=== PATIENT | male | born 1970 | race Caucasian/White ===

== ENCOUNTER 2017-01-21 10:07 | Day surgery (SDC) | payer OTHER ==
[2017-01-21] VITALS (9 sets, daily range): BP systolic 125–155; BP diastolic 82–94; PULSE 86–98; RESP 13–23; O2SAT 94–97
[~2017-01-21] VITALS: Ht 172.7 cm; Wt 82.1 kg
--- NOTE | 2017-01-21 06:44 | PCM.HPANE ---
Patient Data Surgeon Admitting Provider: Attending Provider:Mike Reeder MD Primary Care Physician:Isaiah Other Provider:Chetan Alvarez Anesthesia Reason for Visit Left Small Proximal Interphalangeal Joint Fracture Ht/WT & BMI Height (Feet): 5 Height (Inches): 8 Weight (Kilograms): 82.10 Body Mass Index 27.00 Allergies Coded Allergies: hydrocodone (Verified Allergy, Unknown, UNKNOWN, 01/15/17) Past Anesthesia History Anesthesia History: Denies:: Fam Anesthesia Reaction, Fam Malignant Hypertherm Diabetes History Hx Diabetes?: No MRSA MRSA: No Medications Reported Medications oxyCODONE-Acetaminophen 5-325 mg 1 Each Tablet1 Tab PO Q6H PRN For Pain Ref 0 01/15/17 Cyclobenzaprine 5 Mg Tablet5 Mg PO TID PRN Spasm 01/15/17 History History of ENT Problems?: No Hx of Heart Problems?: No Cardiovascular History: Denies:: Heart Murmur Hypertension Hx of Respiratory Problem?: No Respiratory History: Denies:: Use of C-PAP Machine Hx Neurologic Problems?: No Hx of GI Problems?: No Hx of Problems?: No Male Hx: Denies:: Prostate Problems Scrotal Mass Testicular Surgery Skin History: Denies:: History Skin Disorders? Pressure Ulcers Musculoskeletal History: Positive for:: Back Injury (C/OF NECK PAIN) Musculoskeletal Trauma (C/OF LT HIP PAIN LT SMALL FINGER FX=CURRENT PROBLEM) Hx of Psycho/Social Problems?: No Hx Surgeries?: No Hx Any Other Health Problems?: No Other History: Denies:: Cancer Endocrine Disease Hospitalization Thyroid Disease History Blood Transfusions: Denies:: Blood Transfusions Hx Diabetes: No Stop/Bang S-Snoring: Do You Snore Loudly: No T-Tired: feel tired, fatigued: No O-Obsered: Observed not breath: Yes P-Blood Pressure: treated: No B- Body Mass Index > 35 kg/m2: No A- Age over 50: No N- Neck Large Circumference: No G- Gender Male: Yes JAMSHID Total Score: 2 Risk Assessment Category Category 1A: Patient has history of documented sleep apnea, and HAS NOT received any narcotic, sedative or anesthesia administration during this stay. Category 1B: Patient has history of documented sleep apnea, and HAS received any narcotic , sedative or anesthesia administration during this stay Category 2: Patient has SUSPECTED Obstructive Sleep Apnea, and HAS received any narcotic , sedative or anesthesia administration during this stay. Category 3: Patient has SUSPECTED Obstructive Sleep Apnea and HAS NOT received narcotic, sedative or anesthesia administration during this stay. Category 4: Outpatient in Procedural Areas with known sleep apnea or who screen positive for High Risk via the STOP/BANG questionnaire. Exam Exam General Appearance: Alert, Oriented X3, Cooperative HEENT/AIRWAY: MP 2, Neck Movement (Thick, from), Mouth Opening (good) Lungs: Clear to Auscultation Heart: Exam Unremarkable Plan Impression Patient chart reviewed, patient interviewed and anesthestic plan with risks, benefits, and alternatives discussed, and informed consent obtained. ASA Physical Status: ASA2 Mod Systemic Disease Anesthetic Plan: GA Bene/Risks/Altern/Consents: Yes HP Complete Prior to Induction: Yes Praveen Adrian MD Jan 21, 2017 06:44
[~2017-01-21 10:07] MED LIST: CYCL5TAB PO; Clindamycin 900 mg/50 mL D5W IV SCH; Lactated Ringer's 1,000 ML IV SCH; OXYC1TAB24 PO
[2017-01-21] MEDS ORDERED: Ondansetron 2 mg/mL 2 mL Inj ONE (10:08)
[2017-01-21] MEDS ORDERED: fentaNYL-PF 50 mCg/mL 2 mL Inj ONE (10:08)
[2017-01-21] MEDS ORDERED: Propofol 10,000 mCg/mL 20 mL Inj ONE (10:08)
[2017-01-21] MEDS ORDERED: Lactated Ringer's 1,000 ML IV ONE (10:52)
[2017-01-21] MEDS ORDERED: Lactated Ringer's 1,000 ML IV SCH (12:12)
[2017-01-21] MEDS ORDERED: Lactated Ringer's 500 ML IV PRN (12:12)
[2017-01-21] MEDS ORDERED: Ondansetron 2 mg/mL 2 mL Inj IVPUSH PRN (12:15)
[2017-01-21] MEDS ORDERED: fentaNYL-PF 50 mCg/mL 2 mL Inj IVPUSH PRN (12:15)
[2017-01-21] MEDS ORDERED: hydrALAZINE 20 mg/mL Inj IVPUSH PRN (12:15)
[2017-01-21] MEDS ORDERED: Labetalol 5 mg/mL 4 mL Inj IV PRN (12:15)
[2017-01-21] MEDS ORDERED: Phenylephrine 10,000 mCg/mL Inj IVPUSH PRN (12:15)
[2017-01-21] MEDS ORDERED: EPHEDrine Sulfate 50 mg/mL Inj IVPUSH PRN (12:15)
[2017-01-21] MEDS ORDERED: Dexamethasone 4 mg/mL Inj IVPUSH PRN (12:15)
[2017-01-21] MEDS ORDERED: Atropine 0.4 mg/mL Inj IVPUSH PRN (12:15)
[2017-01-21] MEDS ORDERED: HYDR25TA4 PO (12:23)
[2017-01-21] MEDS ORDERED: Bupivacaine-MPF 0.25% 30 mL Inj INFILTRATE ONE (12:28)
[2017-01-21] MEDS ORDERED: oxyCODONE-Acetamin 5-325 mg Tablet PO PRN (13:40)
[2017-01-21] MEDS: HYDROmorphone 1 mg/mL Inj IVPUSH PRN ×2 (13:42→13:49)
--- NOTE | 2017-01-21 14:17 | PCM.ANEP1 ---
Post Anesthesia Phase 1 PACU Phase 1 Assessment Vital Signs Vital Signs Date Time Temp Pulse Resp B/P Pulse Ox O2 Delivery O2 Flow Rate FiO2 01/21/17 14:06 36.5 93 21 135/92 96 Room Air 01/21/17 14:00 36.5 90 19 142/93 95 Room Air 01/21/17 13:45 94 18 149/87 94 Room Air 01/21/17 13:40 97 15 130/94 95 Room Air 01/21/17 13:35 98 23 125/82 96 Room Air 01/21/17 13:33 36.8 138/93 01/21/17 10:43 36.8 86 14 155/92 97 Room Air Anesthetic Administered: GA Level of Alertness: Awake, talking COLLADO's with Equal Strength: Yes Pain: No Nausea or Vomiting: No Oxygen Delivery: Room Air Lungs: Normal Air Movement Praveen Adrian MD Jan 21, 2017 14:17
--- NOTE | 2017-01-22 07:20 | PCM.ANEP2 ---
Post Anesthesia Evaluation ASA/CMS Post Anesthesia VS in Patient's Normal Range?: Yes Resp Stable; Airway Patent?: Yes CV Function & Hydration Stable: Yes Mental Status Recovered?: Yes Pain control Satisfactory?: Yes N/V Control Satisfactory?: Yes Praveen Adrian MD Jan 22, 2017 07:20
--- NOTE | 2017-01-23 00:30 | OP ---
[address] [address] OPERATIVE REPORT PATIENT: LEVI COLUNGA : 1970 MR#: [id number] ADMIT: 01/21/2017 JOB ID: [id number] DATE OF SURGERY: PREOPERATIVE DIAGNOSIS(ES): Left small finger middle phalangeal base fracture, comminuted, intra-articular, and displaced. POSTOPERATIVE DIAGNOSIS(ES): Left small finger middle phalangeal base fracture, comminuted, intra-articular, and displaced. PROCEDURE: 1. Closed reduction of left small finger middle phalangeal base fracture. 2. Application of left small finger external fixation device. SURGEON: Mike Reeder MD. SENIOR PROJECT LEADER/TEAM LEAD: None. ANESTHESIA: General anesthesia. ESTIMATED BLOOD LOSS: Minimal. COMPLICATIONS: None apparent. IMPLANT: Biomet Biosymmetric external fixation device. COMPLICATIONS: None apparent. INDICATIONS FOR PROCEDURE: This is a 46-year-old male patient who sustained a severely comminuted fracture of the left small finger middle phalangeal base with impaction and displacement. At this point, a closed reduction of the fracture is indicated. I elected to place a dynamic proximal interphalangeal joint external fixation device to allow for recovery while preventing joint contracture. PROCEDURE AND FINDINGS: The patient was identified in the preoperative area and surgical site was marked. The patient was then taken back to the operating room and placed supine on the operating table. Appropriate time-outs were taken. General anesthesia was induced smoothly. The patient was then prepped and draped in the usual sterile manner. Local anesthesia was then infiltrated to the left small finger in a digital block and dorsal ring block. This consists of 0.25% Marcaine. The fracture was then viewed and again showed a comminuted fracture of the middle phalangeal base with multiple fragments. The distal fragment has impacted into the base. At this point, a true lateral view of the finger was obtained. I was able to have the nurse hold the finger in such a position to hold this view steady under the fluoroscopy. A Biomet Symmetric external fixation kit was then obtained. It was then aligned directly over the point of rotation of the proximal phalangeal head. This was confirmed with the guide on the fixation device under fluoroscopy. A 0.045 inch K-wire was then driven through the device and across the point of rotation for the joint holding the fixation device in place. Once this has been done, the device was then aligned with the distal fragment. Again, a second 0.045 inch K-wire was driven through the middle phalangeal head, again with the external fixator aligned in such a way that the pin is optimally aligned. Once this has been done, the pins were locked. The device was then distracted for approximately half a centimeter to allow the distal fragment to be relocated to its original position. This area was then checked with fluoroscopy. The alignment is much improved. There continues to be a small proximal piece that is slightly displaced. I tried to relocate this piece with close manipulation as well as pinching of the piece with a towel clip; however, I was not able to get this to stay reduced. The joint surface appeared to be fairly . At this point, a second 0.045 inch K-wire was then placed into the middle phalanx just proximal to the second pin. Once this had been done, I was satisfied with the alignment and with the distraction. The pins were clipped and pin caps were placed. The pin sites were then dressed with Xeroform. The patient tolerated the procedure well. Needle count, sponge count, instrument counts were correct at the end of procedure. The patient was extubated and transported to recovery in a stable condition.
[2017-02-04] MEDS ORDERED: CYCL10TA9 PO (09:31)
[2017-02-04] MEDS ORDERED: HYDR25TA4 PO (09:32)
[2017-02-04] MEDS ORDERED: OXYC1TAB24 PO (09:32)
[2017-03-17] MEDS ORDERED: OXYC-466 PO (14:31)
[2017-03-17] MEDS ORDERED: CYCL5TAB PO (14:31)
== END 2017-01-21 23:59 | disposition home or self-care (01) ==
LOC: SAS 10:07
PROVIDERS: ATTEND Plastic Surgery
DX: S62.625A Displaced fracture of middle phalanx of left ring finger, initial encounter for closed fracture (principal); X58.XXXA Exposure to other specified factors, initial encounter; Y92.9 Unspecified place or not applicable; Z79.899 Other long term (current) drug therapy
CPT/HCPCS: 26740; J1170; J7120

== ENCOUNTER 2017-02-05 08:56 | Day surgery (SDC) | payer OTHER ==
[~2017-02-05] VITALS: Ht 172.7 cm; Wt 80.3 kg
--- NOTE | 2017-02-05 06:40 | PCM.HPANE ---
Patient Data Surgeon Admitting Provider: Attending Provider:Mike Reeder MD Primary Care Physician:Isaiah Other Provider:Chetan Alvarez Anesthesia Reason for Visit Left Small Finger Fracture Ht/WT & BMI Height (Feet): 5 Height (Inches): 8 Weight (Kilograms): 80.28 Body Mass Index 26.00, 26.00 Allergies Coded Allergies: hydrocodone (Verified Allergy, Unknown, UNKNOWN, 01/15/17) Past Anesthesia History Anesthesia History: Denies:: Fam Anesthesia Reaction, Fam Malignant Hypertherm Diabetes History Hx Diabetes?: No MRSA MRSA: No Medications Reported Medications Hydrochlorothiazide 25 Mg [id number] Mg PO DAILY 30 Days Ref 0 02/04/17 Discontinued Reported Medications oxyCODONE-Acetaminophen 5-325 mg 1 Each Tablet1 Tab PO Q6H PRN For Pain Ref 0 02/04/17 Cyclobenzaprine 10 Mg [id number] Mg PO TID PRN Spasm 02/04/17 Hydrochlorothiazide 25 Mg [id number] Mg PO DAILY 30 Days Ref 0 01/21/17 oxyCODONE-Acetaminophen 5-325 mg 1 Each Tablet1 Tab PO Q6H PRN For Pain Ref 0 01/15/17 History History of ENT Problems?: No HEENT History: Positive for:: Abnormal Airway Denies:: Cataracts Difficult Intubation Dysphagia Glaucoma Hearing Problem Sinus Problem TMJ Denture Type: None Teeth Condition: Within Normal Limits Hx of Heart Problems?: No Cardiovascular History: Denies:: Heart Murmur Hypertension Hx of Respiratory Problem?: No Respiratory History: Denies:: Use of C-PAP Machine Hx Neurologic Problems?: No Hx of GI Problems?: No Hx of Problems?: No Male Hx: Denies:: Prostate Problems Scrotal Mass Testicular Surgery Skin History: Denies:: History Skin Disorders? Pressure Ulcers Hx Musculoskeletal Problems?: Yes Musculoskeletal History: Positive for:: Back Injury (hx of neck pain) Musculoskeletal Trauma (left small finger dislocation current problem, orig surgery 11/2016) Hx of Psycho/Social Problems?: No Hx Surgeries?: Yes (left small finger ORIF- ext fixation) Hx Any Other Health Problems?: Yes Other History: Denies:: Cancer Endocrine Disease Hospitalization Thyroid Disease History Blood Transfusions: Denies:: Blood Transfusions Hx Diabetes: No Smoking Status: Smoker Current Status UNK Stop/Bang S-Snoring: Do You Snore Loudly: No T-Tired: feel tired, fatigued: No O-Obsered: Observed not breath: Yes P-Blood Pressure: treated: No B- Body Mass Index > 35 kg/m2: No A- Age over 50: No N- Neck Large Circumference: No G- Gender Male: Yes JAMSHID Total Score: 2 JAMSHID Risk Assessment: Low Risk, <3 Yes Risk Assessment Category Category 1A: Patient has history of documented sleep apnea, and HAS NOT received any narcotic, sedative or anesthesia administration during this stay. Category 1B: Patient has history of documented sleep apnea, and HAS received any narcotic , sedative or anesthesia administration during this stay Category 2: Patient has SUSPECTED Obstructive Sleep Apnea, and HAS received any narcotic , sedative or anesthesia administration during this stay. Category 3: Patient has SUSPECTED Obstructive Sleep Apnea and HAS NOT received narcotic, sedative or anesthesia administration during this stay. Category 4: Outpatient in Procedural Areas with known sleep apnea or who screen positive for High Risk via the STOP/BANG questionnaire. Exam Exam General Appearance: Alert, Oriented X3, Cooperative, No Acute Distress HEENT/AIRWAY: MP 2 Lungs: Clear to Auscultation, Normal Air Movement Heart: Exam Unremarkable, Regular Rate/Rhythm, No Murmurs/Rubs/Gallops Plan Impression Patient chart reviewed, patient interviewed and anesthestic plan with risks, benefits, and alternatives discussed, and informed consent obtained. NPO per Anesth. Guidelines: Yes ASA Physical Status: ASA2 Mod Systemic Disease Anesthetic Plan: MAC Bene/Risks/Altern/Consents: Yes HP Complete Prior to Induction: Yes Alexi Aguilar MD Feb 05, 2017 06:40
[~2017-02-05 08:56] MED LIST changes: -CYCL5TAB PO; -Clindamycin 900 mg/50 mL D5W IV SCH; +Clindamycin Inj 900 MG in IV Premix 1 EACH IV ONE; +HYDR25TA4 PO; -Lactated Ringer's 1,000 ML IV SCH; -OXYC1TAB24 PO
[2017-02-05] MEDS ORDERED: fentaNYL-PF 50 mCg/mL 2 mL Inj ONE (08:57)
[2017-02-05] MEDS ORDERED: Propofol 10,000 mCg/mL 20 mL Inj ONE (08:57)
[2017-02-05] MEDS ORDERED: Lactated Ringer's 1,000 ML IV ONE (09:30)
[2017-02-05 09:41] VITALS: BP 144/86; PULSE 82; RESP 14; O2SAT 99
[2017-02-05] MEDS ORDERED: Lactated Ringer's 500 ML IV PRN (11:14)
[2017-02-05] MEDS ORDERED: Lactated Ringer's 1,000 ML IV SCH (11:14)
[2017-02-05] MEDS ORDERED: MetoCLOpramide 5 mg/mL 2 mL Inj IVPUSH PRN (11:15)
[2017-02-05] MEDS ORDERED: EPHEDrine Sulfate 50 mg/mL Inj IVPUSH PRN (11:15)
[2017-02-05] MEDS ORDERED: Ondansetron 2 mg/mL 2 mL Inj IVPUSH PRN (11:15)
[2017-02-05] MEDS ORDERED: Dexamethasone 4 mg/mL Inj IVPUSH PRN (11:15)
[2017-02-05] MEDS ORDERED: Phenylephrine 10,000 mCg/mL Inj IVPUSH PRN (11:15)
[2017-02-05] MEDS ORDERED: HYDROmorphone 1 mg/mL Inj IVPUSH PRN (11:15)
[2017-02-05] MEDS ORDERED: Lidocaine 1% 50 mL Inj NERVEBLOCK ONE (11:37)
[2017-02-05] MEDS ORDERED: Bupivacaine-MPF 0.25% 30 mL Inj NERVEBLOCK ONE (11:37)
[2017-02-05] MEDS ORDERED: oxyCODONE-Acetamin 10-325 mg Tablet PO PRN (12:05)
[2017-02-05] MEDS: fentaNYL-PF 50 mCg/mL 2 mL Inj IVPUSH PRN ×3 (12:09→12:38)
[2017-02-05 12:11] VITALS: BP 138/95; PULSE 87; RESP 16; O2SAT 99
[2017-02-05 12:19] VITALS: BP 151/93; PULSE 90; RESP 16; O2SAT 94
--- NOTE | 2017-02-05 12:27 | PCM.ANEP1 ---
Post Anesthesia Phase 1 PACU Phase 1 Assessment Vital Signs Vital Signs Date Time Temp Pulse Resp B/P Pulse Ox O2 Delivery O2 Flow Rate FiO2 02/05/17 12:19 90 16 151/93 94 Room Air 02/05/17 12:11 36.1 87 16 138/95 99 Room Air 02/05/17 09:41 36.7 82 14 144/86 99 Room Air Anesthetic Administered: MAC Level of Alertness: Awake, talking COLLADO's with Equal Strength: Yes Pain: Yes Pain Scale Score: 5 Nausea or Vomiting: No Cardiovascular Function and Hy: Yes Oxygen Delivery: Room Air Lungs: Clear to Auscultation, Normal Air Movement Alexi Aguilar MD Feb 05, 2017 12:27
[2017-02-05 12:40] VITALS: BP 149/89; PULSE 74; RESP 16; O2SAT 94
--- NOTE | 2017-02-10 09:30 | OP ---
[address] [address] OPERATIVE REPORT PATIENT: LEVI COLUNGA : 1970 MR#: [id number] ADMIT: 02/05/2017 JOB ID: [id number] DATE OF SURGERY: 02/05/2017 PREOPERATIVE DIAGNOSIS(ES): 1. Left small finger proximal interphalangeal joint fracture dislocation, status post closed reduction and external fixation. 2. Relapse of the left small finger fracture with external fixator malfunction. POSTOPERATIVE DIAGNOSIS(ES): 1. Left small finger proximal interphalangeal joint fracture dislocation, status post closed reduction and external fixation. 2. Relapse of the left small finger fracture with external fixator malfunction. PROCEDURE: 1. Closed reduction of left finger proximal interphalangeal joint fracture dislocation. 2. Adjustment and re-application of left small finger external fixator. SURGEON: Mike Reeder MD STUDENT ACCOUNTS MANAGER: None. ANESTHESIA: MAC with local. COMPLICATIONS: None apparent. SPECIMEN: None. INDICATIONS FOR PROCEDURE: This is a 46-year-old, male patient, with a left small finger proximal interphalangeal joint fracture dislocation with comminuted fracture of the base of the middle phalanx. The patient was taken back to the operating room on January 21, 2017, and closed reduction and external fixator placement was completed. According to the patient that one of the proximal pins slipped out of the external fixator on postop day one. Although I saw the patient on that day, did not notice any difference. However, I saw the patient two weeks postoperative and the proximal pin on the radial side had disengaged from the external fixator, causing an ulnar deviation at the fracture site. At that point, I elected to schedule the patient for operating room to replace the external fixator and to re-distract the finger. DESCRIPTION OF PROCEDURE: The patient was identified in the preoperative area and surgical site was marked. It was noted that the proximal pin had disengaged from the ulnar site of the external fixator as well on examination today. The patient was then taken back to the operating room and placed supine on the operating table. Appropriate time-outs were taken. MAC was induced smoothly. The patient was then prepped and draped in the usual sterile manner. Local anesthesia was then infiltrated in a digital block fashion. A dorsal ring block was also carried out. I also infiltrated some local anesthesia into the flexor sheath and around the fracture itself. Once this has been done, the external fixator was examined. Both pins were out proximally. The distal pins appeared to be secure. I did distraction on the external fixator on both the radial and ulnar side to the shortest possible distance. I was able to then re-engage the pins on the ulnar and radial side. Once this had been done, I pinched external fixator to reduce the width. This allowed me to bend the ends of the pins to prevent further slippage. The radial aspect of the pin was able to be bent about 90 degrees. Ulnarly, the pin was a little bit shorter and I could only bend it to approximately 45 degrees or so. Once this has been done, I re-distracted the external fixator out to length. The fracture was checked with portable fluoroscopy. The patient had only adequate reduction. Not as good as two weeks ago. The pin also showed some stress bending. At this point, I decided that I cannot distract this any further, as any further distraction will likely cause the pin to slip out ulnarly. The external fixator was then dressed with antibiotic ointment and Xeroform at the pin sites. The patient was then placed into an ulnar gutter splint in an intrinsic plus position. The patient tolerated the procedure well. Needle count, sponge count, instrument counts were correct at the end of the procedure. The patient was transported to recovery in stable condition. The plan is to keep the patient splinted for approximately four weeks. I will probably remove the external fixator at six weeks to eight weeks, and start the patient on aggressive range of motion.
[2017-03-17] MEDS ORDERED: OXYC-466 PO (14:31)
[2017-03-17] MEDS ORDERED: CYCL5TAB PO (14:31)
== END 2017-02-05 23:59 | disposition home or self-care (01) ==
LOC: SAS 08:56
PROVIDERS: ATTEND Plastic Surgery
DX: S62.625A Displaced fracture of middle phalanx of left ring finger, initial encounter for closed fracture (principal); Y93.9 Activity, unspecified; Y92.9 Unspecified place or not applicable
CPT/HCPCS: 20693; 26740; J2250; J3010; J7120

== ENCOUNTER 2017-03-18 12:56 | Day surgery (SDC) | payer OTHER ==
[~2017-03-18] VITALS: Ht 172.7 cm; Wt 85.0 kg
[~2017-03-18 12:56] MED LIST changes: +CYCL5TAB PO; +CeFAZolin Inj 2 GM in IV Premix 1 EACH IV SCH; -Clindamycin Inj 900 MG in IV Premix 1 EACH IV ONE; -HYDR25TA4 PO; +Lactated Ringer's 1,000 ML IV SCH; +OXYC-466 PO
[2017-03-18] MEDS ORDERED: Propofol 10,000 mCg/mL 20 mL Inj ONE (12:57)
[2017-03-18] MEDS ORDERED: Lactated Ringer's 500 ML IV PRN (13:31)
[2017-03-18] MEDS ORDERED: Lactated Ringer's 1,000 ML IV SCH (13:31)
[2017-03-18] MEDS ORDERED: Dexamethasone 4 mg/mL Inj IVPUSH PRN (13:35)
[2017-03-18] MEDS ORDERED: Ondansetron 2 mg/mL 2 mL Inj IVPUSH PRN (13:35)
[2017-03-18] MEDS ORDERED: MetoCLOpramide 5 mg/mL 2 mL Inj IVPUSH PRN (13:35)
[2017-03-18] MEDS ORDERED: HYDROmorphone 1 mg/mL Inj IVPUSH PRN (13:35)
[2017-03-18] MEDS ORDERED: Phenylephrine 10,000 mCg/mL Inj IVPUSH PRN (13:35)
[2017-03-18] MEDS ORDERED: EPHEDrine Sulfate 50 mg/mL Inj IVPUSH PRN (13:35)
[2017-03-18] MEDS ORDERED: fentaNYL-PF 50 mCg/mL 2 mL Inj IVPUSH PRN (13:35)
[2017-03-18 13:45] VITALS: BP 143/95; PULSE 100; RESP 16; O2SAT 96
[2017-03-18] MEDS ORDERED: Lactated Ringer's 1,000 ML IV ONE (13:45)
--- NOTE | 2017-03-18 14:25 | PCM.HPANE ---
Patient Data Surgeon Admitting Provider: Attending Provider:Mike Reeder MD Primary Care Physician:Isaiah Other Provider:Chetan Alvarez Anesthesia Reason for Visit Fracture Of Left Small Finger Ht/WT & BMI Height (Feet): 5 Height (Inches): 8 Weight (Kilograms): 85 Body Mass Index 28.00 Allergies Coded Allergies: hydrocodone (Verified Allergy, Unknown, UNKNOWN, 01/15/17) Past Anesthesia History Anesthesia History: Positive for:: Abnormal Airway, Denies:: Anesthesia Reactions, Difficult Intubation, Fam Anesthesia Reaction , Fam Malignant Hypertherm Diabetes History Hx Diabetes?: No MRSA MRSA: No Medications Reported Medications oxyCODONE-Acetaminophen 10-325 mg 1 Each Tablet1 Tablet PO Q6H PRN For Pain Ref 0 03/17/17 Cyclobenzaprine 5 Mg Tablet5 Mg PO TID PRN Spasm 03/17/17 Discontinued Reported Medications Hydrochlorothiazide 25 Mg Qmlprh23 Mg PO DAILY 30 Days Ref 0 02/04/17 History History of ENT Problems?: No HEENT History: Denies:: Abnormal Airway Cataracts Difficult Intubation Dysphagia Glaucoma Hearing Problem Sinus Problem TMJ Denture Type: None Teeth Condition: Within Normal Limits Hx of Heart Problems?: No Cardiovascular History: Denies:: Heart Murmur Hypertension Other History/Comments HTN on meds Hx of Respiratory Problem?: No Respiratory History: Denies:: Oxygen Administration Use of C-PAP Machine Use of Inhalers / NEBS Hx Neurologic Problems?: No Hx of GI Problems?: No Hx of Problems?: No Male Hx: Denies:: Prostate Problems Scrotal Mass Testicular Surgery Skin History: Denies:: History Skin Disorders? Pressure Ulcers Hx Musculoskeletal Problems?: Yes Musculoskeletal History: Positive for:: Back Injury (hx of neck pain) Musculoskeletal Trauma (lretained hardware left small finger, current admission problem) Hx of Psycho/Social Problems?: No Hx Surgeries?: Yes (left small finger ORIF- ext fixation) Hx Any Other Health Problems?: Yes Other History: Denies:: Cancer Endocrine Disease Hospitalization Thyroid Disease History Blood Transfusions: Denies:: Blood Transfusions Hx Diabetes: No Smoking Status: Smoker Current Status UNK Stop/Bang Treated for Sleep Apnea?: No S-Snoring: Do You Snore Loudly: No T-Tired: feel tired, fatigued: No O-Obsered: Observed not breath: No P-Blood Pressure: treated: No B- Body Mass Index > 35 kg/m2: No A- Age over 50: No N- Neck Large Circumference: No G- Gender Male: Yes JAMSHID Total Score: 1 Risk Assessment Category Category 1A: Patient has history of documented sleep apnea, and HAS NOT received any narcotic, sedative or anesthesia administration during this stay. Category 1B: Patient has history of documented sleep apnea, and HAS received any narcotic , sedative or anesthesia administration during this stay Category 2: Patient has SUSPECTED Obstructive Sleep Apnea, and HAS received any narcotic , sedative or anesthesia administration during this stay. Category 3: Patient has SUSPECTED Obstructive Sleep Apnea and HAS NOT received narcotic, sedative or anesthesia administration during this stay. Category 4: Outpatient in Procedural Areas with known sleep apnea or who screen positive for High Risk via the STOP/BANG questionnaire. Exam Exam General Appearance: Alert HEENT/AIRWAY: MP 2 Lungs: Clear to Auscultation, Normal Air Movement Heart: Exam Unremarkable, Regular Rate/Rhythm, No Murmurs/Rubs/Gallops Meds/Labs/Diagnostics Admission Meds Current Medications Lactated Ringer's (Lr) 1,000 ml @ ud STK-MED ONCE IV Last administered on t 13:45; Start 03/18/17 at 13:45; Stop 03/18/17 at 14:13; Status DC Plan Impression Patient chart reviewed, patient interviewed and anesthestic plan with risks, benefits, and alternatives discussed, and informed consent obtained. NPO per Anesth. Guidelines: Yes ASA Physical Status: ASA2 Mod Systemic Disease Anesthetic Plan: MAC Bene/Risks/Altern/Consents: Yes HP Complete Prior to Induction: Yes Ramos Perez MD Mar 18, 2017 14:25
[2017-03-18] MEDS ORDERED: HYDR12.55 PO (14:27)
[2017-03-18] MEDS ORDERED: Bupivacaine-MPF 0.25% 30 mL Inj INJ ONE (14:44)
[2017-03-18] MEDS ORDERED: oxyCODONE-Acetamin 5-325 mg Tablet PO PRN (15:05)
--- NOTE | 2017-03-18 15:09 | PCM.ANEP1 ---
Post Anesthesia PACU Phase 1 Assessment Vital Signs Vital Signs Date Time Temp Pulse Resp B/P Pulse Ox O2 Delivery O2 Flow Rate FiO2 03/18/17 13:45 36.6 100 16 143/95 96 Room Air Anesthetic Administered: MAC Level of Alertness: Awake, talking COLLADO's with Equal Strength: No Pain: No Pain Scale Score: 0 Nausea or Vomiting: No CV Function & Hydration Stable: Yes Airway Device: Oxygen Delivery: Room Air Lungs: Clear to Auscultation, Normal Air Movement Dermatome Level: Full Sensation PACU Phase 2 Assessment Complications: No Follow up Care: N/A Patient Instructions Provided: N/A Ramos Perez MD Mar 18, 2017 15:09
[2017-03-18 15:10] VITALS: BP 123/81; PULSE 100; RESP 14; O2SAT 100
[2017-03-18 16:00] VITALS: BP 112/69; PULSE 68; RESP 14; O2SAT 99
--- NOTE | 2017-03-21 04:10 | OP ---
[address] [address] OPERATIVE REPORT PATIENT: LEVI COLUNGA : 1970 MR#: [id number] ADMIT: 03/18/2017 JOB ID: [id number] DATE OF SURGERY: 03/18/2017 PREOPERATIVE DIAGNOSIS(ES): 1. Left small finger proximal interphalangeal joint fracture dislocation status post reduction external fixation. 2. Retained external fixator. POSTOPERATIVE DIAGNOSIS(ES): 1. Left small finger proximal interphalangeal joint fracture dislocation status post reduction external fixation. 2. Retained external fixator. PROCEDURE: Removal of left small finger external fixation device. SURGEON: Mike Reeder MD. ASSISTANT FRONT OFFICE MANAGER: None. ANESTHESIA: MAC with local. COMPLICATIONS: None apparent. SPECIMEN: None. ESTIMATED BLOOD LOSS: Minimal. INDICATIONS FOR PROCEDURE: This is a 46-year-old male patient who sustained a severely comminuted fracture dislocation of the left small finger proximal interphalangeal joint. The patient is status post a close reduction and external fixation on January 21, 2017. However this was complicated by slippage of the pin through the external fixator. The patient required another closed reduction and readjustment of external fixator on February 05, 2017. The patient is six weeks post this second procedure. At this point, we will remove the external fixator is indicated. PROCEDURE AND FINDINGS: The patient was identified in the preoperative area. Surgical site was marked. The patient was then taken back to operating room and placed on the operating table. Appropriate time-outs were taken. MAC was induced smoothly. The patient was then prepped and draped in the usual sterile manner. Local anesthesia was infiltrated around the small finger neurovascular bundle with 1% lidocaine and Marcaine. A dorsal ring block was also carried out. Once this has been done, it was noted that the external fixator is securely in place. Using the pin cutter, I cut the three pins at the fixation point to the external fixator on the ulnar aspect. Once this has been done, I was able to slide the external fixator radially. This allowed me to cut the pins at the radial interaction point with the external fixator. Once this has been done, the pins were then pulled out without any difficulty. The pin sites were dressed. The patient tolerated the procedure well. Needle count, sponge count and instrument counts were correct at the end of procedure. The patient was transported to recovery in stable condition.
== END 2017-03-18 23:59 | disposition home or self-care (01) ==
LOC: SAS 12:56
PROVIDERS: ATTEND Plastic Surgery
DX: S62.627D Displaced fracture of middle phalanx of left little finger, subsequent encounter for fracture with routine healing (principal)
CPT/HCPCS: 20694; J0690; J2250; J7120